=== PATIENT | female | born 1995 | race African-American/Black ===

== ENCOUNTER 2018-07-13 17:02 | Emergency (ER) | payer OTHER ==
[~2018-07-13] VITALS: Ht 175.3 cm; Wt 90.7 kg
[2018-07-13 17:37] VITALS: BP 116/84
== END 2018-07-13 19:00 | disposition home or self-care (01) ==
LOC: ER 17:12
DX: K04.7 Periapical abscess without sinus (principal); M25.562 Pain in left knee; M25.561 Pain in right knee; M25.512 Pain in left shoulder; M25.511 Pain in right shoulder; M54.2 Cervicalgia; F11.10 Opioid abuse, uncomplicated
CPT/HCPCS: 99282; A4606; Z7610